=== PATIENT | female | born 1975 | race Caucasian/White ===

== ENCOUNTER 2016-05-14 05:30 | Day surgery (SDC) | payer OTHER ==
[2016-05-12 13:12] LABS: HEMATOCRIT 38.9 % (36.0-47.0); HEMOGLOBIN 13.1 g/dL (12.0-15.5); HGB HCT DIFFERENCE 0.4; MEAN CORPUSCULAR HGB CONC 33.6 g/dL (32.0-36.0); MEAN CORPUSCULAR VOLUME 86 fl (80-97); RED BLOOD COUNT 4.51 10^6/uL (3.72-5.28); WHITE BLOOD COUNT 5.2 10^3/uL (4.0-10.5)
[2016-05-12 13:17] LABS: APPEARANCE,URINE SLIGHTLY-CLOUDY; BILIRUBIN,URINE NEGATIVE (NEGATIVE); GLUCOSE, URINE NEGATIVE (NEGATIVE); KETONES,URINE NEGATIVE (NEGATIVE); LEUKOCYTE ESTERASE,URINE NEGATIVE (NEGATIVE); NITRITE,URINE NEGATIVE (NEGATIVE); PROTEIN,URINE NEGATIVE (NEGATIVE); URINE SPECIFIC GRAVITY 1.026; UROBILINOGEN,URINE NEGATIVE mg/dL (<2.0)
[2016-05-12 13:32] LABS: ANION GAP 9 (5-19); BLOOD UREA NITROGEN 14 mg/dL (7-20); CALCIUM 9.8 mg/dL (8.4-10.2); CARBON DIOXIDE 28 mmol/L (22-30); CHLORIDE 102 mmol/L (98-107); CREATININE RESULT 0.69 mg/dL (0.52-1.25); GLUCOSE 99 mg/dL (75-110); POTASSIUM 4.3 mmol/L (3.6-5.0); SODIUM 138.5 mmol/L (137-145)
--- NOTE | 2016-05-12 21:45 | EKG REPORT ---
SEVERITY:- NORMAL ECG - SINUS RHYTHM : Confirmed by: Sumaya Sow 12-May-2016 21:44:55
[~2016-05-14 05:30] MED LIST: BESIFLOXACIN HCL 0.6% OPH SUSP 5 ML BOTTLE OD PRN; CEFAZOLIN SODIUM 1 GM in DEXTROSE 5%-WATER 50 ML IV PRN; CYCLOPENTOLATE 0.2%/PHENYLEPHRINE 1% OPH SOLN 2 ML OD PRN; KETOROLAC TROMETHAMINE 0.45% 4 DROP/0.4 ML DROPERETTE OD PRN; LACTATED RINGERS 1000 ML IV PRN; LIDOCAINE 0.5% INJ-PF (5 MG/ML) 50 ML SDV SUBCUT PRN; TETRACAINE HCL 0.5% OPH SOLN 0.6 ML DROPERETTE OD PRN; TROPICAMIDE 1% OPH SOLN 3 ML OD PRN
[2016-05-14] MEDS ORDERED: MIDAZOLAM 2 MG/2 ML INJ ONE (06:48)
[2016-05-14] MEDS ORDERED: FENTANYL CITRATE INJ/PF 250 MCG/5 ML AMPULE ONE (06:48)
[2016-05-14] MEDS ORDERED: HYDROMORPHONE HCL INJ/PF 2 MG/ML AMPULE ONE (06:48)
[2016-05-14] MEDS ORDERED: EPHEDRINE SULFATE INJ 50 MG/1 ML AMPULE ONE (06:48)
[2016-05-14] MEDS ORDERED: DEXMEDETOMIDINE INJ 80 MCG/20 ML VIAL IV ONE (06:49)
[2016-05-14] MEDS ORDERED: ACETAMINOPHEN 100 ML IV ONE (06:49)
[2016-05-14] MEDS ORDERED: PROPOFOL INJ 200 MG/20 ML VIAL IV ONE (06:49)
[2016-05-14] MEDS ORDERED: DIPHENHYDRAMINE HCL 50 MG/ML VIAL IV PRN (08:17)
[2016-05-14] MEDS ORDERED: MEPERIDINE HCL/PF INJ 25 MG/1 ML DISP.SYRIN IV PRN (08:17)
[2016-05-14] MEDS ORDERED: ONDANSETRON HCL INJ/PF 4 MG/2 ML SDV IV PRN (08:17)
[2016-05-14] MEDS ORDERED: MORPHINE SULFATE 10 MG/ML INJ IV PRN (08:17)
[2016-05-14] MEDS ORDERED: PROMETHAZINE HCL INJ 25 MG/1 ML VIAL IV PRN ×2 (08:17)
[2016-05-14] MEDS ORDERED: FENTANYL CITRATE INJ/PF 100 MCG/2 ML AMPUL IV PRN ×3 (08:17)
[2016-05-14] MEDS ORDERED: FENTANYL CITRATE INJ/PF 100 MCG/2 ML AMPUL ONE (09:00)
[2016-05-14] MEDS ORDERED: RINGERS SOLUTION,LACTATED 1,000 ML IV PRN ×2 (09:05→12:24)
[2016-05-14] MEDS ORDERED: OXYCODONE-ACETAMINOPHEN 5-325 MG TABLET PO PRN (09:06)
[2016-05-14] MEDS ORDERED: PROMETHAZINE HCL INJ 25 MG/1 ML VIAL IM PRN (09:08)
[2016-05-14] MEDS ORDERED: MORPHINE SULFATE 10 MG/ML INJ INJ PRN (09:08)
[2016-05-14] MEDS ORDERED: MORPHINE SULFATE 10 MG/ML INJ IM PRN (09:08)
--- NOTE | 2016-05-14 09:38 | OPERATIVE REPORT E ---
Operative Report NAME: SYLVESTER PURCELL : 1975 AGE: 40Y DATE OF SURGERY: 05/14/2016 ROOM: PREOPERATIVE DIAGNOSES: 1. Menorrhagia. 2. Uterine leiomyoma. POSTOPERATIVE DIAGNOSES: 1. Menorrhagia. 2. Uterine leiomyoma. PROCEDURES: 1. Total vaginal hysterectomy. 2. Gonzales culdoplasty. SURGEON: NELSON HERNÁNDEZ M.D. COMPLICATIONS: None. ESTIMATED BLOOD LOSS: 100 mL. FINDINGS: Uterus upper limits of normal size. Normal tubes and ovaries are identified. No enterocele formation noted. INDICATIONS FOR PROCEDURE: The patient has symptomatic uterine leiomyoma, unresponsive to outpatient management. She desired attempt at definitive therapy. The usual risk of bleeding, infection, anesthesia, and damage to organs and tissues were discussed and the patient understood. DESCRIPTION OF PROCEDURE: The patient was taken to the operating room and placed in the modified lithotomy position and adequate anesthesia ascertained. Prepped in the usual manner for a vaginal hysterectomy. A surgical timeout was performed, antibiotics had been given, and EUA performed, and a posterior culdotomy incision was made. A weighted speculum was placed in the posterior aspect of the vagina. Cul-de-sac was entered without difficulty. Uterosacral ligaments were crossclamped, cut, suture ligated, and held. Cervix was circumscribed and bladder was advanced sequentially at this aspect of the procedure and then the LigaSure device was used to cauterize the uterine pedicles up to the uterine ovarian ligaments bilaterally. Once the uterus was brought into the operative field, the pedicles were suture ligated and free tied as well as cauterized and the uterus and cervix handed off the operative field. Good hemostasis was noted bilaterally on the pedicles. The upper pedicles were released. The vagina was then closed with #1 Vicryl stitch. This was used throughout the case in a similar fashion. A Gonzales culdoplasty was placed and tied at the end. At completion of procedure, all sponge and needle counts were correct. The patient was taken to the recovery room in stable condition. DICTATING PHYSICIAN: NELSON HERNÁNDEZ M.D. [id number] PHY#: [id number] ID: [id number] JOB#: [id number] ACCT: [id number] cc:NELSON HERNÁNDEZ M.D. >
[2016-05-14] MEDS ORDERED: METOCLOPRAMIDE HCL INJ/PF 10 MG/2 ML SDV ONE (09:51)
[2016-05-14] MEDS ORDERED: ROCURONIUM BROMIDE INJ 50 MG/5 ML VIAL IV ONE (09:51)
[2016-05-14] MEDS ORDERED: LIDOCAINE 2% INJ-PF (20 MG/ML) 10 ML AMPUL ONE (09:51)
[2016-05-14] MEDS ORDERED: DEXAMETHASONE SOD PHOSPHATE INJ 4 MG/1 ML VIAL ONE (09:51)
[2016-05-14] MEDS ORDERED: GLYCOPYRROLATE INJ 0.4 MG/2 ML VIAL ONE (09:51)
[2016-05-14] MEDS ORDERED: SUCCINYLCHOLINE CHLORIDE INJ 200 MG/10 ML VIAL ONE (09:51)
[2016-05-14] MEDS ORDERED: ONDANSETRON HCL INJ/PF 4 MG/2 ML SDV ONE (09:51)
[2016-05-14] MEDS: MORPHINE SULFATE 10 MG/ML INJ INJ PRN ×3 (10:59→16:17)
[2016-05-14] MEDS: IBUPROFEN 800 MG TABLET PO SCH ×4 (11:10→22:44)
[2016-05-14] MEDS ORDERED: CEFAZOLIN SODIUM 1 GM in DEXTROSE 5%-WATER 50 ML IV SCH (12:00)
[2016-05-14] MEDS ORDERED: CEFAZOLIN SODIUM 1 GM in DEXTROSE 5%-WATER 50 ML IV ONE ×2 (14:00→20:00)
[2016-05-14] MEDS ORDERED: DOCUSATE SODIUM 100 MG CAPSULE PO ONE (15:30)
[2016-05-14] MEDS ORDERED: LORATADINE 10 MG TABLET PO ONE (15:30)
[2016-05-14] MEDS ORDERED: MULTIVITAMIN TABLET PO ONE (15:30)
[2016-05-14] MEDS ORDERED: LAMOTRIGINE 100 MG TABLET PO ONE (15:30)
[2016-05-14] MEDS ORDERED: PROPRANOLOL HCL 10 MG TABLET PO ONE (15:30)
[2016-05-14] MEDS: OXYCODONE-ACETAMINOPHEN 5-325 MG TABLET PO PRN (19:23)
[2016-05-15] MEDS: OXYCODONE-ACETAMINOPHEN 5-325 MG TABLET PO PRN ×3 (00:17→11:44)
[2016-05-15 06:27] LABS: HEMATOCRIT 31.4 % (36.0-47.0); HEMOGLOBIN 10.5 g/dL (12.0-15.5); HGB HCT DIFFERENCE 0.1; MEAN CORPUSCULAR HEMOGLOBIN 28.9 pg (27.0-33.4); MEAN CORPUSCULAR HGB CONC 33.4 g/dL (32.0-36.0); MEAN CORPUSCULAR VOLUME 87 fl (80-97); RED BLOOD COUNT 3.63 10^6/uL (3.72-5.28); WHITE BLOOD COUNT 8.7 10^3/uL (4.0-10.5)
[2016-05-15] MEDS ORDERED: IRON 18 MG PO SCH (10:00)
[2016-05-15] MEDS ORDERED: DOCUSATE SODIUM 100 MG CAPSULE PO SCH (10:00)
[2016-05-15] MEDS ORDERED: PROPRANOLOL HCL 10 MG TABLET PO SCH (10:00)
[2016-05-15] MEDS ORDERED: MULTIVITAMIN TABLET PO SCH (10:00)
[2016-05-15] MEDS ORDERED: LORATADINE 10 MG TABLET PO SCH (10:00)
[2016-05-15] MEDS ORDERED: LAMOTRIGINE 100 MG TABLET PO SCH (10:00)
[2016-05-15] MEDS ORDERED: FERROUS SULFATE 325 MG TABLET PO SCH (10:00)
[2016-05-15] MEDS ORDERED: LISDEXAMFETAMINE DIMESYLATE 40 MG PO SCH (10:00)
[2016-05-15 13:03] VITALS: BP 93/57
[2016-05-15] MEDS: IBUPROFEN 800 MG TABLET PO SCH (13:08)
== END 2016-05-15 13:55 | disposition home or self-care (01) ==
LOC: OROUT 05:30 → 2N 09:40 → OROUT 05-15 13:55
PROVIDERS: ATTEND Specialist
PROC: 0UTC7ZZ Resection of Cervix, Via Natural or Artificial Opening (ICD-10-PCS; 2016-05-14)
PROC: 0UT97ZZ Resection of Uterus, Via Natural or Artificial Opening (ICD-10-PCS; principal; 2016-05-14 07:15)
DX: N92.0 Excessive and frequent menstruation with regular cycle (principal); D25.9 Leiomyoma of uterus, unspecified; N72 Inflammatory disease of cervix uteri; N73.6 Female pelvic peritoneal adhesions (postinfective); D64.9 Anemia, unspecified; E07.9 Disorder of thyroid, unspecified; F32.9 Major depressive disorder, single episode, unspecified; F41.9 Anxiety disorder, unspecified; Z87.440 Personal history of urinary (tract) infections; Z88.2 Allergy status to sulfonamides; Z79.84 Long term (current) use of oral hypoglycemic drugs; Z79.899 Other long term (current) drug therapy
CPT/HCPCS: 93005; 86900; 86901; 36415 ×2; 86850; 85027 ×2; 81025; 80048; 81001; 88307 ×2; 71020; 94799; 93010; 58260; J2250; J0690; J3490 ×3; J1100; J3010 ×2; J2765; J2270; J0330; J2405; J7120; J2704; J0131; 944; J1170